=== PATIENT | female | born 1975 | race Caucasian/White ===

== ENCOUNTER → 2019-12-01 18:52 | Outpatient (ROUT) | payer OTHER, SELFPAY ==
[2019-12-01 19:13] LABS: Hematocrit 40.3 % (36-46); Hemoglobin 13.7 g/dL (12.0-16.0); Mean Corpuscular HGB Conc 34.1 % (30-36); Mean Corpuscular Hemoglobin 31.1 PG (26-34); Mean Corpuscular Volume 91.4 fL (80-100); Platelet Count 375 X10^3/uL (150-400); Red Blood Cell Count 4.41 X10^6/uL (4.0-5.2); Red Cell Distribution Width 13.6 % (11.6-14.8)
[2019-12-01 19:23] LABS: Alanine Aminotransferase 45 IU/L (<35); Albumin 3.7 g/dL (3.5-5.0); Albumin Globulin Ratio 1.1 (1.0-2.8); Alkaline Phosphatase 112 U/L (38-126); Aspartate Aminotransferase 50 IU/L (14-36); BUN Creatinine Ratio 15.9 (6-22); Bilirubin Total 0.4 mg/dL (0.2-1.3); Blood Urea Nitrogen 11 mg/dL (7-17); Calcium 8.9 mg/dL (8.4-10.2); Carbon Dioxide 27 mmol/L (22-32); Chloride 103 mmol/L (98-107); Cholesterol 153 mg/dL (140-199); Estimated Glomerular Filt Rate > 60.0 mL/min (>60); Globulin 3.3 g/dL (1.7-4.1); Glucose 92 mg/dL (70-100); HDL Cholesterol 36 mg/dL (40-60); HEMOLYSIS < 15 (0-50); LDL Cholesterol Calculated 87 mg/dL (<100); Potassium 4.3 mmol/L (3.4-5.1); Sodium 137 mmol/L (137-145); Triglycerides 150 mg/dL (35-150)
[2019-12-01 19:52] LABS: TSH w/ Reflex to FT4 1.78 uIU/mL (0.47-4.68)
[2019-12-03 08:27] LABS: Add Manual Diff / Slide Review NO; Basophils Absolute Auto 0 /uL (0-100); Basophils Percent Auto 0.5 % (0-2); Eosinophils Absolute Auto 0 /uL (0-450); Eosinophils Percent Auto 1.1 % (2-4); Lymphocytes Absolute Auto 5 /uL (1100-4500); Lymphocytes Percent Auto 34.8 % (25-40); Monocytes Absolute Auto 1 /uL (0-900); Monocytes Percent Auto 8.3 % (3-14); Neutrophils Absolute Auto 9 /uL (1500-7000); Neutrophils Percent Auto 55.3 % (50-75)
== END ==
PROVIDERS: Family Provider Nurse Practitioner; PCP Nurse Practitioner; Visit Provider Internal Medicine
DX: Z00.00 Encounter for general adult medical examination without abnormal findings (principal); F31.81 Bipolar II disorder
CPT/HCPCS: 80053; 80061; 84443; 85025; 85027

== ENCOUNTER → 2019-12-25 19:39 | Outpatient (ROUT) | payer OTHER, SELFPAY ==
[2019-12-25 20:11] LABS: Hematocrit 40.9 % (36-46); Hemoglobin 13.5 g/dL (12.0-16.0); Mean Corpuscular HGB Conc 33.1 % (30-36); Mean Corpuscular Hemoglobin 30.7 PG (26-34); Mean Corpuscular Volume 92.7 fL (80-100); Platelet Count 376 X10^3/uL (150-400); Red Blood Cell Count 4.41 X10^6/uL (4.0-5.2); Red Cell Distribution Width 13.3 % (11.6-14.8); White Blood Cell Count 12.4 X10^3/uL (4.5-11.0)
[2019-12-25 20:19] LABS: Alanine Aminotransferase 42 IU/L (<35); Albumin 3.9 g/dL (3.5-5.0); Albumin Globulin Ratio 1.3 (1.0-2.8); Alkaline Phosphatase 113 U/L (38-126); Aspartate Aminotransferase 41 IU/L (14-36); Bilirubin Total 0.3 mg/dL (0.2-1.3); Bilirubin Unconjugated 0.1 mg/dL (0.0-1.1); Globulin 3.1 g/dL (1.7-4.1); HEMOLYSIS < 15 (0-50); Lactate Dehydrogenase 507 U/L (313-618)
[2019-12-25 20:23] LABS: Neutrophils Absolute Manual 6572 /uL (3000-5900); RBC Morphology Normal Morphology; Total Cells Counted 100
[2019-12-25 20:54] LABS: Ferritin 63 ng/mL (6-137)
[2019-12-27 07:10] LABS: Hepatitis B Surf AB Quant <3.1 mIU/mL (Immunity>9.9)
[2019-12-27 18:12] LABS: Hep C Virus Ab w/Reflex Quant NEGATIVE s/c (NEGATIVE); Hepatitis B Surface Antigen NEGATIVE s/c (NEGATIVE)
== END ==
PROVIDERS: Family Provider Nurse Practitioner; PCP Nurse Practitioner; Visit Provider Internal Medicine
DX: D72.829 Elevated white blood cell count, unspecified (principal); R74.8 Abnormal levels of other serum enzymes; E83.119 Hemochromatosis, unspecified; Z20.9 Contact with and (suspected) exposure to unspecified communicable disease
CPT/HCPCS: 80076; 82728; 83615; 85025; 86706; 86803; 87340

== ENCOUNTER 2020-07-29 14:15 | Outpatient (RCR) | payer OTHER, SELFPAY ==
--- NOTE | 2020-07-26 15:00 | PT.OPPOC ---
Physical, Occupational & Speech Therapy At [facility] Current Diagnoses Benign paroxysmal vertigo, unspecified ear (07/26/20) Visit Care Team Role Provider Type Richard Conteh MD Primary Care Provider Physician Specialty: Internal Medicine Address: [address] [place] [address], [id number] Email: [email or web address] Carol Ann Kenny PA-C Attending Provider Non-Staff Referring Provider Specialty: Internal Medicine Address: [address] [place] [address], [id number] Email: [email or web address] Plan Of Care PT-OP-T Assessment and Plan Start: 07/26/20 07:27 Freq: Status: Active Protocol: Document 07/26/20 14:15 AMB (Rec: 07/27/20 08:01 AMB [email or web address]) Physical Therapy Assessment Rehab Potential Rehabilitation Potential Good Evaluation Complexity Number of Personal Factors/Comorbidities 1-2 Number of Body Systems Impaired 1-2 Clinical Presentation at Evaluation Stable Impairments Impairments Activity Tolerance,Balance, Functional Activities, Functional Mobility,Vestibular Goals One Impairment dizziness Short Term Goal (STG) Rcahel will perform all bed mobility without spinning. STG Duration 4 weeks Customer Associate Goal (LTG) Rachel will not have nystagmus or symptoms with any positional vertigo testing. LTG Duration 8 weeks Assessment Summary Assessment Abraham's symptoms subjectively sounded like BPPV but we were unable to illicit dizziness or nystagmus with any testing. Denies hearing changes, symptoms have been staying the same, until the last few days when she hasn't had as much spinning but still doesn't feel normal yet. Will see for one more appointment to give her more time to see if spinning returns and retest. If spinning has returned would need to consider other reasons for vertigo to include vestibular neuritis or Meniere 's although these are less likely with her exam and history. If spinning has resolved, it's likely that she did have BPPV and it resolved before PT, possibly with MD assessment. Physical Therapy Plan Frequency and Duration Frequency of Treatment 2x/Week Duration of Treatment 8 weeks Plan of Care Start Date 07/26/20 Plan of Care End Date 09/13/20 Therapeutic Interventions Therapeutic Interventions Canalithic Repositioning,Home Exercise Program,Neuromuscular Re-education,Self-Care/Home Management,Therapeutic Activities,Therapeutic Exercises,Vestibular Rehabilitation Next Visit Focus/Plan Next Note Type Treatment Note Next Visit Plan Emilie beltre Plan of Care Dates Plan of Care Start Date 07/26/20 Plan of Care End Date 09/13/20 Electronically Signed by: Jocelyne Marquez, PT 07/27/20 0804 Please Sign and Return: I have reviewed this Plan of Care and certify that the skilled therapy services above are required to meet the patient?s needs. Physician Signature Date Printed Name and Credentials Clinical Instructor Signature Printed Name and Credentials
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
== END 2020-08-02 08:19 | disposition home or self-care (01) ==
LOC: PHYS 14:15
PROVIDERS: PCP Internal Medicine; Referring Provider Student in an Organized Health Care Education/Training Program; Visit Provider Student in an Organized Health Care Education/Training Program
DX: H81.10 Benign paroxysmal vertigo, unspecified ear (principal)
CPT/HCPCS: 95992; 97161

== ENCOUNTER → 2020-08-03 14:44 | Outpatient (CLI) | payer OTHER, SELFPAY ==
[2020-08-03 15:16] LABS: COVID19 -Nasal RAPID Negative (Negative)
--- NOTE | 2020-08-03 15:57 | PM.TREADMILL ---
Cardiac Stress Test Report Referral & Results Date Patient Seen: 08/03/20 Time Patient Seen: 15:57 Requesting provider: Carol Ann Kenny Indication: chest pain Rest ECG: Sinus rhythm Procedure Note: Standard Garry protocol, 3:29, 3.7 METS Markedly reduce stress test, MARY +56%; Submaximal stress test, max heart rate achieved was 147 BPM, target heart rate was 148 Normal hemodynamic response to exercise No chest pain or anginal symptomts No significant ST changes at peak exercise No ectopy. Impression: Submaximal exercise stress Please note: Actual ECG tracings can be found in the PACS system.
--- NOTE | 2020-08-03 18:21 | DI.NM.S_ITS ---
PROCEDURE PERFORMED: Exercise treadmill stress test without imaging. DATE OF SERVICE: August 03, 2020. ORDERING PROVIDER: Carol Ann Kenny PA-C INDICATIONS: The patient is a morbidly obese 44-year-old female with atypical chest discomfort and lightheadedness. FINDINGS: 1. The patient was able to exercise for 3 minutes 29 seconds on a standard Garry protocol suggesting markedly reduced exercise capacity with an MARY of +56%, achieving 3.7 METS. 2. She had a borderline heart rate response to exercise, achieving a maximum heart rate of 147 BPM (84% of her predicted maximum). She had a mild hypertensive blood pressure response with a resting blood pressure 140/70, increasing to a maximum of 200/90. 3. She had no chest discomfort or other anginal pain and stopped predominantly because of dyspnea. 4. Her resting ECG shows sinus rhythm with normal ST segments. With exercise, there are no significant ST-segment shifts or arrhythmias. IMPRESSION: 1. Normal exercise treadmill study for ischemia with slightly reduced sensitivity because of a borderline heart rate response but an adequate rate- pressure product. 2. Markedly reduced exercise capacity with limiting dyspnea but no chest discomfort with a borderline heart rate response and a mild hypertensive blood pressure response to exercise. Rachel Rene - NATALIE/gary/suleman doc#: [id number]/job#: [id number] dd: 08/03/2020 17:28:00 dt: 08/03/2020 18:03:00 DICTATING /COPIES TO: Garrett Gonzalez MD; Carol Ann Kenny PA-C COPIES EMMY: ASHLIE
== END ==
LOC: DI 14:46
PROVIDERS: PCP Internal Medicine; Referring Provider Student in an Organized Health Care Education/Training Program; Visit Provider Student in an Organized Health Care Education/Training Program
DX: R07.9 Chest pain, unspecified (principal)
CPT/HCPCS: 87635; 93017

== ENCOUNTER → 2022-01-02 11:42 | Outpatient (CLI) | payer OTHER, SELFPAY ==
--- NOTE | 2022-01-02 | DI.MG.S_ITS ---
BILATERAL DIGITAL DIAGNOSTIC MAMMOGRAM 3D/2D: 01/02/2022 CLINICAL: Baseline. left breast lump. Family history of breast cancer. Comparison is made to exam dated: 08/11/2014 mammogram - [facility]. There are scattered areas of fibroglandular density in both breasts (category b / 25%-50% glandular tissue). No significant masses, calcifications, or other findings are seen in either breast. IMPRESSION: INCOMPLETE: NEEDS ADDITIONAL IMAGING EVALUATION There is no mammographic abnormality seen in the left breast to correspond with the palpable abnormality, however, targeted ultrasound of the left breast is recommended and will be performed immediately following this exam. Based on the Tyrer Cuzick model (a risk assessment model) the patient's lifetime risk is 11.0% and her 10 year risk is 2.4%. According to the ACR, ACS, and NCCN guidelines, an annual breast MRI exam along with mammogram is recommended if the patient's lifetime risk is 20% or greater. This exam was interpreted at Station ID: [id number]. NOTE: For mammograms, a report in lay terms will be sent to the patient. Approximately 15% of breast malignancies will not be visualized mammographically. In the management of a palpable breast mass, a negative mammogram must not discourage biopsy of a clinically suspicious lesion. Electronically Signed By: Amy kelley/:01/02/2022 12:44:48 ACR BI-RADS Category 0: Incomplete 3340F
--- NOTE | 2022-01-02 | DI.US.S_ITS ---
LIMITED ULTRASOUND OF LEFT BREAST AND AXILLA: 01/02/2022 CLINICAL: Palpable left breast lump. Comparison is made to exams dated: 01/02/2022 mammogram - [facility] and 08/11/2014 mammogram - [facility]. Color flow ultrasound of the left breast axilla was performed on the areas of interest. Guerrero scale images of the real-time examination were reviewed. There is an irregular cyst in the left breast at 9 o'clock posterior depth. This irregular cyst is of mixed echogenicity with internal echoes and posterior acoustic enhancement. A tract extends to the skin surface. This correlates as palpated. Color flow imaging demonstrates that there is no vascularity present. IMPRESSION: BENIGN There is no sonographic evidence of malignancy. The irregular cyst in the left breast is consistent with a sebaceous cyst and is benign. A 1 year screening mammogram is recommended. This exam was interpreted at Station ID: [id number]. Electronically Signed By: Amy Zaman M.D. lk/:01/02/2022 13:26:28 letter sent: Normal Exam Ultrasound BI-RADS: 2 Benign
== END ==
PROVIDERS: PCP Student in an Organized Health Care Education/Training Program; Referring Provider Student in an Organized Health Care Education/Training Program; Visit Provider Student in an Organized Health Care Education/Training Program
DX: N60.02 Solitary cyst of left breast (principal); R92.2 Inconclusive mammogram
CPT/HCPCS: 76642; 77066; G0279

== ENCOUNTER → 2022-05-02 10:10 | Outpatient (CLI) | payer OTHER, SELFPAY ==
[2022-05-02 10:37] LABS: Hematocrit 38.5 % (36-46); Hemoglobin 12.9 g/dL (12.0-16.0); Mean Corpuscular HGB Conc 33.5 % (30-36); Mean Corpuscular Hemoglobin 29.4 PG (26-34); Mean Corpuscular Volume 87.9 fL (80-100); Platelet Count 366 X10^3/uL (150-400); Red Blood Cell Count 4.38 X10^6/uL (4.0-5.2); Red Cell Distribution Width 13.8 % (11.6-14.8); White Blood Cell Count 13.3 X10^3/uL (4.5-11.0)
[2022-05-02 10:52] LABS: Alanine Aminotransferase 31 IU/L (<35); Albumin 3.7 g/dL (3.5-5.0); Alkaline Phosphatase 111 U/L (38-126); Aspartate Aminotransferase 25 IU/L (14-36); BUN Creatinine Ratio 15.4 (6-22); Bilirubin Total 0.3 mg/dL (0.2-1.3); Blood Urea Nitrogen 10 mg/dL (7-17); Calcium 8.3 mg/dL (8.4-10.2); Carbon Dioxide 28 mmol/L (22-32); Chloride 100 mmol/L (98-107); Cholesterol 152 mg/dL (140-199); Estimated Glomerular Filt Rate > 60 mL/min (>60); Globulin 3.6 g/dL (1.7-4.1); Glucose 127 mg/dL (70-100); HDL Cholesterol 33 mg/dL (40-60); HEMOLYSIS < 15 (0-50); LDL Cholesterol Calculated 92 mg/dL (<100); Sodium 136 mmol/L (137-145); Total Protein 7.3 g/dL (6.3-8.2); Triglycerides 135 mg/dL (35-150)
[2022-05-02 11:23] LABS: TSH w/ Reflex to FT4 1.89 uIU/mL (0.47-4.68)
== END ==
PROVIDERS: PCP Internal Medicine; Referring Provider Internal Medicine; Visit Provider Internal Medicine
DX: Z00.00 Encounter for general adult medical examination without abnormal findings (principal); F31.9 Bipolar disorder, unspecified; I10 Essential (primary) hypertension
CPT/HCPCS: 36415; 80053; 80061; 84443; 85027

== ENCOUNTER → 2022-10-03 16:25 | Outpatient (CLI) | payer OTHER, SELFPAY ==
[2022-10-03 17:36] LABS: Glucose 136 mg/dL (70-100)
[2022-10-04 07:07] LABS: x Labcorp Estim. Avg Glu (eAG) 174 mg/dL (.); x Labcorp Hemoglobin A1c 7.7 % (4.8-5.6)
== END ==
PROVIDERS: PCP Internal Medicine; Referring Provider Internal Medicine; Visit Provider Internal Medicine
DX: R73.01 Impaired fasting glucose (principal)
CPT/HCPCS: 36415; 82947; 83036

== ENCOUNTER 2023-04-22 09:35 | Day surgery (SDC) | payer OTHER, MEDICAID, SELFPAY ==
[2023-04-22 10:10] VITALS: BP 135/89; PULSE 80; RESP 18; TEMP 36.4; O2SAT 97
[2023-04-22] MEDS: LACTATED RINGERS 1,000 ML 42 ML IV (10:20)
--- NOTE | 2023-04-22 11:19 | PM.HP.1 ---
History of Present Illness History of Present Illness Date Patient Seen: 04/22/23 Time Patient Seen: 11:20 Chief complaint: Colonoscopy Narrative: History of colon polyps. Last scope 5 years ago. 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 Smoking Status: Former smoker alcohol intake: never Meds Home Medications and Allergies Home Medications Medication Instructions Recorded Confirmed Type aripiprazole 15 mg tablet 22.5 mg PO BEDTIME 05/02/22 04/22/23 History gabapentin 300 mg capsule 300 mg PO DAILY 05/02/22 04/22/23 History pantoprazole 40 mg tablet,delayed 40 mg PO BID #180 tabs 05/22/22 04/22/23 Rx release duloxetine 20 mg capsule,delayed 20 mg PO BID #180 caps 03/05/23 04/22/23 Rx release (Cymbalta) peg 3350-electrolytes 236 240 ml PO Q10M #4,000 mL 03/26/23 04/08/23 Rx gram-22.74 gram-6.74 gram-5.86 gram solution (Golytely) liraglutide 0.6 mg/0.1 mL (18 mg/3 0.6 mg (0.1 mL) SUBCUT DAILY #27 mL 04/08/23 04/22/23 Rx mL) subcutaneous pen injector (Victoza 3-Dominic) pen needle, diabetic 31 gauge x #1,200 ea 04/08/23 04/08/23 History 07/17 (Droplet Pen Needle) metoprolol succinate 50 mg 50 mg PO DAILY #90 tabs 04/15/23 04/22/23 Rx tablet,extended release 24 hr alprazolam 1 mg tablet 1 mg PO BID PRN panic attack(s) 04/22/23 Rx #60 tabs Allergies Allergy/AdvReac Type Severity Reaction Status Date / Time No Known Drug Allergies Allergy Verified 04/22/23 10:05 Review of Systems Review of Systems ROS: Yes All systems reviewed with the patient and are negative except as otherwise documented Exam Vital Signs (past 8 hours): - 04/22/23 10:10 Temperature 97.6 F Pulse Rate 80 Respiratory Rate 18 Blood Pressure 135/89 Pulse Oximetry 97 Oxygen Delivery Method Room Air Oxygen Delivery Method Room Air Const General: cooperative and healthy appearing Nutritional Appearance: overweight HENMT Head: normocephalic and atraumatic Eyes Sclera: sclerae normal Neck Neck: trachea midline Resp Effort & Inspection: normal respiratory effort and able to speak in complete sentences Cardio Rate: regular rate Rhythm: regular rhythm GI Palpation: soft and No tender Skin General: elasticity normal and turgor normal Neuro General: patient alert, patient awake and patient oriented x3 Cognition: normal cognition Psych Mental Status: mental status grossly normal Affect: normal affect Judgment: judgment good Assessment & Plan Assessment & Plan narrative: History of colon polyps. Here for colonoscopy with anesthesia Time Spent With Patient Time with patient: less than 30 minutes
--- NOTE | 2023-04-22 11:42 | PM.OP.COLON ---
Operative Date/Time/Diagnoses Date of procedure: 04/22/23 Time of procedure: 11:42 Pre-op diagnosis: History of colon polyps Post-op diagnosis: same Procedure & Clinicians Study performed: Colonoscopy with anesthesia Same procedure as scheduled: Yes Indications: History of colon polyps Surgeon: Haven Bobo Procedure Notes Procedure in detail: Preop diagnosis: History of colon polyps Postop diagnosis: Same Operative procedure: Colonoscopy with anesthesia Surgeon: Yomaira Bobo MD Findings: Normal colonoscopy. No polyps identified Procedure: Patient placed in a lateral position. Rectal exam performed showing normal tone no masses. Colonoscope inserted into the rectum and advanced to ileocecal valve with minimal difficulty insufflation extraction scope including retroflex in the rectum had the above findings. Impression: No polyps identified. No diverticulosis Plan: Repeat colonoscopy in 5 years due to self history of colon polyps Specimen(s): none sent Complications: none Post-procedure Recommendations: Colonoscopy in 5 years Follow up: as needed Disposition: PACU
[2023-04-22 11:46] VITALS: BP 117/74; PULSE 78; RESP 16; TEMP 36.8; O2SAT 92
[2023-04-22 11:51] VITALS: BP 138/94; PULSE 92; RESP 19; O2SAT 96
[2023-04-22 11:55] VITALS: BP 146/96; PULSE 78; RESP 12; TEMP 36.4; O2SAT 97
== END 2023-04-22 12:14 | disposition home or self-care (01) ==
PROVIDERS: PCP Internal Medicine; Referring Provider Surgery; Visit Provider Surgery
PROC: 0DJD8ZZ Inspection of Lower Intestinal Tract, Via Natural or Artificial Opening Endoscopic (ICD-10-PCS; CPT 45378; principal; 2023-04-22 10:45)
DX: Z12.11 Encounter for screening for malignant neoplasm of colon (principal); Z86.010 Personal history of colon polyps
CPT/HCPCS: 45378; J2704

== ENCOUNTER → 2023-05-02 09:26 | Outpatient (CLI) | payer OTHER, MEDICAID, SELFPAY ==
[2023-05-02 10:47] LABS: BUN Creatinine Ratio 10.3 (6-22); Blood Urea Nitrogen 7 mg/dL (7-17); Carbon Dioxide 33 mmol/L (22-32); Chloride 103 mmol/L (98-107); Estimated Glomerular Filt Rate > 60 mL/min (>60); Glucose 128 mg/dL (70-100); HEMOLYSIS < 15 (0-50); Potassium 4.6 mmol/L (3.4-5.1); Sodium 138 mmol/L (137-145)
[2023-05-02 12:21] LABS: Creatinine Urine Random 196.7 mg/dL
[2023-05-02 12:25] LABS: Microalbumin Urine Random 6.9 mg/dL (0-1.6)
== END ==
PROVIDERS: PCP Internal Medicine; Referring Provider Internal Medicine; Visit Provider Internal Medicine
DX: E11.69 Type 2 diabetes mellitus with other specified complication (principal); E78.5 Hyperlipidemia, unspecified
CPT/HCPCS: 36415; 80048; 82043; 82570; 83036

== ENCOUNTER → 2023-06-10 12:05 | Outpatient (CLI) | payer OTHER, MEDICAID, SELFPAY ==
--- NOTE | 2023-06-10 12:07 | DI.RAD.S_ITS ---
PROCEDURE: XR SKULL<4V INDICATIONS: left forehead lump (place marker) TECHNIQUE: 3 view(s) of the skull acquired. Skin marker was positioned COMPARISON: None. FINDINGS: Bones: No fractures. No suspicious bony lesions. Visualized sinuses appear clear. Soft tissues: No soft tissue calcifications. No suspicious soft tissue densities. IMPRESSION: Unremarkable skull radiographs. No osseous component of palpable left forehead bump Approved by: Shahid Avina M.D. on 06/10/2023 at 18:34
== END ==
PROVIDERS: PCP Internal Medicine; Referring Provider Internal Medicine; Visit Provider Internal Medicine
DX: M89.9 Disorder of bone, unspecified (principal)
CPT/HCPCS: 70250

== ENCOUNTER → 2023-06-24 14:44 | Outpatient (CLI) | payer OTHER, MEDICAID, SELFPAY ==
--- NOTE | 2023-06-24 15:06 | DI.RAD.S_ITS ---
PROCEDURE: XR CHEST 2V INDICATIONS: Cough TECHNIQUE: 2 views of the chest were acquired. COMPARISON: None. FINDINGS: Surgical changes and devices: None. Lungs and pleura: Lungs are clear. No pleural effusions or pneumothorax. Mediastinum: Mediastinal contours are normal. Heart size is normal. Bones and chest wall: No suspicious bony abnormalities. Soft tissues appear unremarkable. IMPRESSION: No acute cardiopulmonary abnormality is seen. Approved by: Jose Vazquez M.D. on 06/24/2023 at 20:32
[2023-06-24 19:09] LABS: Influenza A - CEPHEID Flu A NEGATIVE (NEGATIVE); Influenza B - CEPHEID Flu B NEGATIVE (NEGATIVE); Respiratory Syncytial Virus Negative (Negative)
[2023-06-24 19:19] LABS: COVID-19 CEPHEID 4-PLEX PCR Negative (Negative)
== END ==
PROVIDERS: PCP Internal Medicine; Referring Provider Nurse Practitioner Family; Visit Provider Nurse Practitioner Family
DX: R52 Pain, unspecified (principal); R05.9 Cough, unspecified
CPT/HCPCS: 27400 ×2; 87635; 87420; 0241U; 71046

== ENCOUNTER → 2023-10-08 11:14 | Outpatient (CLI) | payer OTHER, MEDICAID, SELFPAY ==
[2023-10-08 12:22] LABS: Aspartate Aminotransferase 32 IU/L (14-36); BUN Creatinine Ratio 12.1 (6-22); Blood Urea Nitrogen 8 mg/dL (7-17); Calcium 8.8 mg/dL (8.4-10.2); Carbon Dioxide 27 mmol/L (22-32); Chloride 103 mmol/L (98-107); Cholesterol 144 mg/dL (140-199); Estimated Glomerular Filt Rate > 60 mL/min (>60); Glucose 252 mg/dL (70-100); HDL Cholesterol 40 mg/dL (40-60); HEMOLYSIS < 15 (0-50); LDL Cholesterol Calculated 64 mg/dL (<100); Potassium 4.5 mmol/L (3.4-5.1); Sodium 136 mmol/L (137-145); Triglycerides 199 mg/dL (35-150)
== END ==
PROVIDERS: PCP Internal Medicine; Referring Provider Internal Medicine; Visit Provider Internal Medicine
DX: E11.69 Type 2 diabetes mellitus with other specified complication (principal); E78.5 Hyperlipidemia, unspecified; E78.2 Mixed hyperlipidemia
CPT/HCPCS: 36415; 80048; 80061; 83036; 84450

== ENCOUNTER → 2024-03-25 14:57 | Outpatient (CLI) | payer OTHER, SELFPAY ==
--- NOTE | 2024-03-25 14:58 | DI.MG.S_ITS ---
BILATERAL DIGITAL SCREENING MAMMOGRAM 3D/2D WITH CAD: 03/25/2024 CLINICAL: Routine screening. Family history of breast cancer. Comparison is made to exam dated: 01/02/2022 mammogram - [facility]. There are scattered areas of fibroglandular density (category b / 25%-50% glandular tissue). Current study was also evaluated with a Computer Aided Detection (CAD) system. No significant masses, calcifications, or other findings are seen in either breast. There has been no significant interval change. IMPRESSION: NEGATIVE There is no mammographic evidence of malignancy. A 1 year screening mammogram is recommended. Based on the Tyrer Cuzick model (a risk assessment model) the patient's lifetime risk is 13.5% and her 10 year risk is 3.2%. According to the ACR, ACS, and NCCN guidelines, an annual breast MRI exam along with mammogram is recommended if the patient's lifetime risk is 20% or greater. This exam was interpreted at Station ID: [id number]. NOTE: For mammograms, a report in lay terms will be sent to the patient. Approximately 15% of breast malignancies will not be visualized mammographically. In the management of a palpable breast mass, a negative mammogram must not discourage biopsy of a clinically suspicious lesion. Electronically Signed By: Mike briggs/josue:03/26/2024 07:41:09 letter sent: Normal Exam ACR BI-RADS Category 1: Negative
== END ==
LOC: MAMMO 14:57
PROVIDERS: PCP Internal Medicine; Referring Provider Internal Medicine; Visit Provider Internal Medicine
DX: Z12.31 Encounter for screening mammogram for malignant neoplasm of breast (principal); Z80.3 Family history of malignant neoplasm of breast
CPT/HCPCS: 77063; 77067

== ENCOUNTER → 2024-03-26 12:31 | Outpatient (CLI) | payer OTHER, SELFPAY ==
--- NOTE | 2024-03-26 12:47 | EKG_ITS ---
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
== END ==
PROVIDERS: PCP Internal Medicine; Referring Provider Internal Medicine; Visit Provider Internal Medicine
DX: I10 Essential (primary) hypertension (principal)
CPT/HCPCS: 93005

== ENCOUNTER → 2024-04-13 09:13 | Outpatient (CLI) | payer OTHER, SELFPAY ==
[2024-04-13 10:34] LABS: Hemoglobin A1C% w Est Avg Glu 7.1 % (4.0-6.0)
[2024-04-13 10:51] LABS: BUN Creatinine Ratio 16.2 (6-22); Blood Urea Nitrogen 12 mg/dL (7-17); Calcium 9.3 mg/dL (8.4-10.2); Carbon Dioxide 23 mmol/L (22-32); Chloride 102 mmol/L (98-107); Estimated Glomerular Filt Rate > 60 mL/min (>60); Glucose 166 mg/dL (70-100); HEMOLYSIS < 15 (0-50); Potassium 4.1 mmol/L (3.4-5.1); Sodium 135 mmol/L (137-145)
== END ==
PROVIDERS: PCP Internal Medicine; Referring Provider Internal Medicine; Visit Provider Internal Medicine
DX: E11.69 Type 2 diabetes mellitus with other specified complication (principal); E78.5 Hyperlipidemia, unspecified
CPT/HCPCS: 36415; 80048; 83036

== ENCOUNTER → 2024-05-13 10:48 | Outpatient (CLI) | payer OTHER, SELFPAY ==
--- NOTE | 2024-05-13 10:49 | DI.RAD.S_ITS ---
PROCEDURE: XR CHEST 2V INDICATIONS: cough post EGD TECHNIQUE: 2 views of the chest were acquired. COMPARISON: [facility], CR, XR CHEST 2V, 06/24/2023, 14:20. FINDINGS: Heart, mediastinum and pulmonary vascular: Heart is normal in size and configuration. Mediastinum is unremarkable. Pulmonary vascular is normal. Lungs: The bronchovascular markings in the medial right lower lobe are prominent suggesting aspiration or infection. Pleural spaces: Normal-no effusions or pneumothorax. Bones and soft tissues: Moderate degenerative disc disease seen throughout the mid lower thoracic spine IMPRESSION: Possible aspiration or infection in the posterior medial right lower lobe. Suggest short-term radiographic follow-up Dictated by: Jak Corona M.D. on 05/13/2024 at 11:24 Approved by: Jak Corona M.D. on 05/13/2024 at 11:25
== END ==
PROVIDERS: PCP Internal Medicine; Referring Provider Internal Medicine; Visit Provider Internal Medicine
DX: J20.9 Acute bronchitis, unspecified (principal)
CPT/HCPCS: 71046

== ENCOUNTER → 2024-06-10 07:29 | Outpatient (CLI) | payer OTHER, SELFPAY ==
--- NOTE | 2024-06-10 07:30 | DI.US.S_ITS ---
PROCEDURE: US ABDOMEN LIMITED INDICATIONS: ELEVATED LFT'S, ELEVATED LIVER ENZYMES, SEVERE OBESITY, PER NOTES TECHNIQUE: Real-time scanning was performed of the abdominal and retroperitoneal organs, with image documentation. TWENTY-ONE IMAGES COMPARISON: None. FINDINGS: Liver: Moderate hepatomegaly with the liver measures approximately 21.7 cm in cc dimension of the right lobe. Moderate diffuse increased echogenicity of the liver commonly hepatic steatosis and or intrinsic hepatic disease. Color Doppler duplex imaging demonstrates normal hepatopetal flow in the main portal vein. Gallbladder: Gallbladder is nondistended. No gallstones. No ultrasound evidence of gallbladder wall thickening or pericholecystic fluid. Biliary ducts: Intrahepatic bile ducts are non-dilated. Extrahepatic bile duct caliber measures 6 mm. Normal is 7 mm or less in diameter. Pancreas: Pancreas is not visualized due to overlying bowel gas and patient body habitus per notes. Spleen: Not imaged. Kidneys: Not imaged. Aorta: Not imaged. Iliacs: Not imaged. IVC: Not imaged Miscellaneous: No free abdominal fluid. IMPRESSION: Moderate hepatomegaly with diffuse increased echogenicity of the liver commonly hepatic steatosis or intrinsic hepatic disease. If symptoms persist or worsen, or there is high clinical suspicion of abdominal abnormality, CT or MRI could be performed. Dictated by: Praveen Fairbanks M.D. on 06/10/2024 at 13:22 Approved by: Praveen Fairbanks M.D. on 06/10/2024 at 13:30
== END ==
PROVIDERS: PCP Internal Medicine; Visit Provider Family Medicine
DX: R16.0 Hepatomegaly, not elsewhere classified (principal); R79.89 Other specified abnormal findings of blood chemistry; E66.01 Morbid (severe) obesity due to excess calories; E66.813 Obesity, class 3; Z68.43 Body mass index [BMI] 50.0-59.9, adult
CPT/HCPCS: 76705

== ENCOUNTER → 2024-09-01 09:30 | Outpatient (CLI) | payer OTHER, SELFPAY ==
[2024-09-01 10:59] LABS: Hemoglobin A1C% w Est Avg Glu 7.2 % (4.0-6.0)
[2024-09-01 11:02] LABS: Blood Urea Nitrogen 19 mg/dL (7-17); Calcium 8.9 mg/dL (8.4-10.2); Carbon Dioxide 21 mmol/L (22-32); Chloride 102 mmol/L (98-107); Estimated Glomerular Filt Rate > 60 mL/min (>60); Glucose 189 mg/dL (70-99); HEMOLYSIS < 15 (0-50); Potassium 4.3 mmol/L (3.4-5.1); Sodium 136 mmol/L (137-145)
[2024-09-01 16:37] LABS: Microalbumi Creatinin Ratio Ur 75.0 ug/mg CR (<30)
== END ==
PROVIDERS: PCP Internal Medicine; Referring Provider Internal Medicine; Visit Provider Internal Medicine
DX: E11.69 Type 2 diabetes mellitus with other specified complication (principal); E78.5 Hyperlipidemia, unspecified
CPT/HCPCS: 36415; 80048; 82043; 82570; 83036